=== PATIENT | female | born 1995 | race Caucasian/White ===

== ENCOUNTER 2018-03-08 19:00 | Inpatient (IN) | payer BC, MEDICAID, SELFPAY ==
[2018-03-08] MEDS: Lactated Ringers 1,000 ML 50 ML IV (19:30)
[2018-03-08 19:50] VITALS: BMI 44.1
[2018-03-08] MEDS: 0.9% Normal Saline 250 ML IV.SOLN. 100 ML IV (20:00)
--- NOTE | 2018-03-08 20:08 | PCM.HP.OB ---
- Problem List (1) Smoking (tobacco) complicating , third trimester Status: Chronic (2) Pyelectasis of fetus on ultrasound Status: Acute History Date of Admission: 03/08/18 Final VIC: 03/01/18 Final VIC Source: US <20 weeks Gestational age: 41 Weeks and 0 Days History of this : This is a 22 year-old, G [1], P [0], at 41 weeks gestational age presenting to triage for scheduled postdates induction. Patient course has overall been uncomplicated. Patient initiated care at 6 weeks gestation x 12 visits. Allergies chlorpheniramine [From Dimetapp Long-Acting (cpm-DM)] Allergy (Verified 03/08/18 19:50) Unknown dextromethorphan [From Dimetapp Long-Acting (cpm-DM)] Allergy (Verified 03/08/18 19:50) Unknown Vitamin Smoking Status: Light Smoker (<10/day) Alcohol: None Number of Fetus(es): 1 Heart Tracing: Baseline 140, moderate variability, + accels, no decels TOCO Analysis: Uterine irritability noted History - Labs Labs: O+, Rubella Immune, HIV Negative, HBsAg Negative, Syphilis Negative, GC/CT negative x 2, 1GCT = 133, urine CCMS = Negative, CBC WNL x 2, GBS positive - Delivery Expected Delivery Method: Spontaneous Vaginal Describe any other labor & delivery plans:: Patient reports interest in an epidural when in active labor - Visits Number of Visits: 12 Review of Systems Constitutional: Denies: Chills, Fever, Weight Change HEENT: Denies: Head Aches, Sinus Congestion, Sinus Drainage Cardiovascular: Denies: Chest Pain, Palpitations Respiratory: Denies: Cough, Shortness of breath at rest, Sputum production Gastrointestinal: Denies: Abdominal Pain, Nausea, Vomiting Genitourinary: Denies: Dysuria Gynecological: Denies: Vaginal bleeding, Vaginal discharge Musculoskeletal: Denies: Joint Pain, Joint Tenderness Skin: Denies: Rash, Wounds Neurological: Denies: Numbness, Tingling, Focal weakness Psychiatric: Denies: Anxiety, Depression, Homicidal Ideations, Suicidal Ideations Hematologic/ Lymphatic: Denies: Easy Bruising, Easy Bleeding Physical Exam Vitals: See nursing note for Vital signs - Patient is normotensive and afebrile at this time General: Alert, Oriented x3, No apparent distress Cardiovascular: Regular rate, Regular Rhythm Lungs: Clear to auscultation, Normal air movement Abdomen: Non Tender, Non-Distended, Gravid, Appropriate for Gestational Age Extremities:: No edema, No tenderness/swelling Estimated gestational size: Appropriate for gestational size - EFW = 8.5# Presentation: Cephalic Cervix Dilation (cm): 1.5 Station: -3 Effacement (%): 50 Assessment/Plan All Active Problems Pyelectasis of fetus on ultrasound (Acute)
[2018-03-08 20:20] LABS: Hematocrit 35.4 % (37-47); Hemoglobin 11.9 g/dl (12.0-15.0); Mean Corp Hgb Conc 33.6 g/gl (32-36); Mean Corpuscular Hgb 31.6 pg (27.0-32.0); Mean Corpuscular Volume 93.9 fL (81-99); Mean Platelet Vol. 10.2 fl (6.2-12.0); Platelet Count 352 K/mm3 (150-450); RBC Distribution Width CV 13.3 % (11.6-14.6); RBC Distribution Width SD 43.3 fl (35.1-43.9); Red Blood Count 3.77 M/mm3 (4.2-5.4); White Blood Count 13.3 K/mm3 (4.4-11.0)
--- NOTE | 2018-03-08 20:23 | HP.PCM_ITS ---
- Problem List (1) Smoking (tobacco) complicating , third trimester Status: Chronic (2) Pyelectasis of fetus on ultrasound Status: Acute History Date of Admission: 03/08/18 Final VIC: 03/01/18 Final VIC Source: US <20 weeks Gestational age: 41 Weeks and 0 Days History of this : This is a 22 year-old, G [1], P [0], at 41 weeks gestational age presenting to triage for scheduled postdates induction. Patient course has overall been uncomplicated. Patient initiated care at 6 weeks gestation x 12 visits. Allergies chlorpheniramine [From Dimetapp Long-Acting (cpm-DM)] Allergy (Verified 19:50) Unknown dextromethorphan [From Dimetapp Long-Acting (cpm-DM)] Allergy (Verified 19:50) Unknown Vitamin Smoking Status: Light Smoker (<10/day) Alcohol: None Number of Fetus(es): 1 Heart Tracing: Baseline 140, moderate variability, + accels, no decels TOCO Analysis: Uterine irritability noted History - Labs Labs: O+, Rubella Immune, HIV Negative, HBsAg Negative, Syphilis Negative, GC/CT negative x 2, 1GCT = 133, urine CCMS = Negative, CBC WNL x 2, GBS positive - Delivery Expected Infant Delivery Method: Spontaneous Vaginal Describe any other labor & delivery plans:: Patient reports interest in an epidural when in active labor - Visits Number of Visits: 12 Review of Systems Constitutional: Denies: Chills, Fever, Weight Change HEENT: Denies: Head Aches, Sinus Congestion, Sinus Drainage Cardiovascular: Denies: Chest Pain, Palpitations Respiratory: Denies: Cough, Shortness of breath at rest, Sputum production Gastrointestinal: Denies: Abdominal Pain, Nausea, Vomiting Genitourinary: Denies: Dysuria Gynecological: Denies: Vaginal bleeding, Vaginal discharge Musculoskeletal: Denies: Joint Pain, Joint Tenderness Skin: Denies: Rash, Wounds Neurological: Denies: Numbness, Tingling, Focal weakness Psychiatric: Denies: Anxiety, Depression, Homicidal Ideations, Suicidal Ideations Hematologic/ Lymphatic: Denies: Easy Bruising, Easy Bleeding Physical Exam Vitals: See nursing note for Vital signs - Patient is normotensive and afebrile at this time General: Alert, Oriented x3, No apparent distress Cardiovascular: Regular rate, Regular Rhythm Lungs: Clear to auscultation, Normal air movement Abdomen: Non Tender, Non-Distended, Gravid, Appropriate for Gestational Age Extremities:: No edema, No tenderness/swelling Estimated gestational size: Appropriate for gestational size - EFW = 8.5# Presentation: Cephalic Cervix Dilation (cm): 1.5 Station: -3 Effacement (%): 50 Assessment/Plan All Active Problems Pyelectasis of fetus on ultrasound (Acute)
[2018-03-08] MEDS: Oxytocin 30 units/NS 500 ml 30 UNITS/500 ML IV.SOLN IV (20:26)
[2018-03-08 20:37] LABS: Scan Indicated on CBC? Y/N NO
--- NOTE | 2018-03-09 06:21 | PCM.PN.OB ---
Patient Problems: Active and Suspected Problems Pyelectasis of fetus on ultrasound (Acute) Subjective: Patient able to rest throughout the night while pitocin infusing. Patient reported rosales bulb fell out a few hours after placement and that she has since had regular strong ctx q 2-4 minutes. Decision mutually made with patient for repeat SVE check at this time. Objective: FHT baseline 130. moderate variability, + accels, no decels Ctx q 2-4 minutes, mild to moderately strong to palpation, Pitocin at 8 milliunits SVE = 5/60/-2, IBOW noted. Cervix now posterior. Suspect direct OP by palpation of sutures. - Physical Exam General: Alert, Oriented x3, Cooperative HEENT: Atraumatic, Normocephalic Neck: Supple Lungs: Clear to auscultation, Normal air movement Cardiovascular: Regular rate, No murmurs Abdomen: Soft, Non Tender, Gravid Extremities: No edema, Capillary Refill Less than 3 Seconds, No Calf Tenderness Skin: No rashes, No breakdown Musculoskeletal: No Tenderness to Palpation of Joints or Extremities Neurological: Deep Tendon Reflexes 2+/4 and Symmetrical Psych/Mental Status: Normal Affect, Appropriate, Alert and oriented to time, place, person, mood and affect Weight: 281 lb 12.012 oz Body Mass Index (BMI) 44.1 Intake and Output for Last 24 Hours 03/07/18 03/08/18 03/09/18 23:59 23:59 23:59 Intake Total 650 / 650 710 / 710 Output Total 300 / 300 900 / 900 Balance 350 / 350 -190 / -190 Laboratory Tests Past 24 Hrs 03/08/18 03/08/18 19:30 19:30 WBC 13.3 H RBC 3.77 L Hgb 11.9 L Hct 35.4 L MCV 93.9 MCH 31.6 MCHC 33.6 RDW 13.3 RDW Differential 43.3 Plt Count 352 MPV 10.2 Blood Type O POSITIVE Antibody Screen NEGATIVE Medical Necessity - Tobacco Use Smoking Status: Light Smoker (<10/day) Assessment/Plan All Active Problems Pyelectasis of fetus on ultrasound (Acute) A: 22 y/o @ 41.1 wks, IOL for Postdates, Pitocin Induction, Category I FHT P: 1) Continue pitocin titration for IOL 2) Encourage position changes, side-lying release to help encourage rotation and descent of baby 3) Anticipate AROM with next SVE if minimal cervical change noted. Demi Barrera APRN-CNM
--- NOTE | 2018-03-09 07:28 | PCM.PN.BLA ---
Progress Note Addendum: Notification by oncoming nurse [place] that elevated blood pressure x 2: 160/90s. Blood pressures were taken about 10 minutes apart. Pre-eclampsia panel ordered at this time. [place] RN instructed to check another blood pressure in 15 minutes, if blood pressure still above 140/90 anticipate initiation of hypertension protocol. Will consult with Dr. Serg MILNER re: plan of care once next blood pressure obtained. Demi NEVAREZ
[2018-03-09 07:46] LABS: Hematocrit 35.5 % (37-47); Hemoglobin 11.8 g/dl (12.0-15.0); Mean Corp Hgb Conc 33.2 g/gl (32-36); Mean Corpuscular Hgb 30.6 pg (27.0-32.0); Mean Corpuscular Volume 92.2 fL (81-99); Mean Platelet Vol. 9.4 fl (6.2-12.0); Platelet Count 316 K/mm3 (150-450); RBC Distribution Width CV 13.4 % (11.6-14.6); RBC Distribution Width SD 44.1 fl (35.1-43.9); Red Blood Count 3.85 M/mm3 (4.2-5.4); White Blood Count 16.3 K/mm3 (4.4-11.0)
[2018-03-09 07:51] LABS: Scan Indicated on CBC? Y/N NO
[2018-03-09 08:04] LABS: Partial Thromboplast Time 27.5 Seconds (24.1-36.2)
[2018-03-09 08:18] LABS: AST(SGOT) 9 U/L (15-37); Alanine Aminotransfer ALT/SGPT 10 U/L (13-56); Creatinine, Serum 0.61 mg/dL (0.55-1.02); EST Glomerular Filtration Rate 129 mL/min (>60); Est Glom Filt Rate - Afr Amer 156 mL/min (>60); Estimated Creatinine Clearance 140.68 ml/min; Uric Acid 4.2 mg/dL (2.6-6.0)
[2018-03-09] MEDS: fentaNYL-bupivacaine (epidural) 100 ML BAG EPIDURAL ×2 (08:40→13:18)
[2018-03-09] MEDS: Lactated Ringers 1,000 ML 50 ML IV ×3 (10:52→18:40)
--- NOTE | 2018-03-09 12:29 | PCM.PN.BLA ---
Progress Note Pain well controlled w/ epidural. FHTs normal baseline, moderate variability, some early decels, some accels. Regular ctxs. IUPC in. Cervix /-2. Cont. expectant management. EFW < 5000 gm clinically and pelvis adequate to expect vaginal delivery.
[2018-03-09 14:48] LABS: Protein, Urine (Random) 12.4 mg/dL (<11.9); Protein:Creat Ratio 268 mg/g CRE (0-200)
--- NOTE | 2018-03-09 18:04 | PCM.PN.BLA ---
Progress Note Comfortable w/ epidural. 7/90/0 station. Moderate caput and some cervical swelling. FHTs w/ normal baseline and moderate variability w/ accels, no signif. decels. Ctxs adequate. Cont. expectant management.
[2018-03-09] MEDS: Oxytocin 30 units/NS 500 ml 30 UNITS/500 ML IV.SOLN 334 UNITS IV (21:30)
--- NOTE | 2018-03-09 21:56 | PCM.OB.VAG ---
Vaginal Delivery Maternal Presentation: Medically Indicated Induction Method of Induction: Pitocin, Bradford Bulb, Amniotomy Medical Reason for Induction: - - 41 weeks Amniotic Membrane Rupture Type: Artificial Amniotic Fluid Description: Clear Final VIC: 03/01/18 Gestational age: 41 Weeks and 1 Days Date of Procedure: 03/09/18 Pre-Operative Diagnosis: labor Post-Operative Diagnosis: same Surgery/ Procedure Performed: Spontaneous Vaginal Delivery Type of Anesthesia: Epidural Description of Procedure: A vigorous male was delivered BARBY over a second-degree perineal laceration. The remainder the infant was delivered with maternal pushing and gentle traction only in less than 15 seconds. The Pitocin infusion was initiated for active management of the third stage. The cord was clamped and cut after 1 minute. The infant was attended to by the waiting nursing staff. The placenta was delivered spontaneously and intact. The cervix and vagina were intact. The second-degree perineal laceration was repaired with 3-0 Vicryl suture in a running standard fashion. Sponge and needle counts were correct. A vaginal sweep was completed by me. Presentation: BARBY Placental Delivery Description: Spontaneous Placenta Disposition: [facility] Cord Vessel Description: 3 Vessels Cord Entanglement: None Drain: Bradford to straight drain Estimated Blood Loss: 300 Infant A gender: Male (1 minute): 8 (5 minute): 9 Episiotomy Description: None Laceration: 2nd degree - perineal Medications given after delivery: IV Pitocin Complications: None
[2018-03-09] MEDS: Oxytocin 30 units/NS 500 ml 30 UNITS/500 ML IV.SOLN 167 UNITS IV (22:00)
--- NOTE | 2018-03-09 22:17 | PCM.DCVAG ---
Discharge Diet: No Restrictions Discharge Activity: Return to Normal Activity, May not drive while taking narcotic pain medications., May Shower May resume sexual activity in: 4-6 weeks Additional Activity Instructions:: Nothing in the vagina for 4-6 weeks. You may return to work/school in 6 weeks. Call your doctor if your incision/area has: Continuous Slow Oozing, Sudden Increased Bleeding, Increased Pain/ Swelling, Increased Redness, Foul Smelling Discharge Additional Instructions: If you experience any of the following, contact your healthcare provider. Bleeding that soaks a pad every hour for 2 hours Fever 100.4 or higher Unrelieved incision or abdominal pain Swelling, redness, discharge or bleeding from your incision or episiotomy site Your incision begins to separate Problems urinating (including inability to urinate or burning while urinating). Visual changes Severe headache Flu-like symptoms Pain or redness in one of both of your breasts Pain, warmth, tenderness or swelling in your legs, especially the calf area Frequent nausea and vomiting Symptoms of depression or anxiety If you experience any of the following, call 911 or go to the nearest Emergency Room. Chest pain Problems breathing Seizure activity Partial or complete paralysis of a body part, slurred speech, weakness or drooping of the face, or a sudden inability to walk or hold your balance Allergies/Adverse Reactions: Allergies chlorpheniramine [From Dimetapp Long-Acting (cpm-DM)] Allergy (Verified 03/08/18 19:50) Unknown dextromethorphan [From Dimetapp Long-Acting (cpm-DM)] Allergy (Verified 03/08/18 19:50) Unknown Medications to take at Discharge Vits [Prenatabs FA] 1 tablet PO DAILY 03/08/18 Ibuprofen [Motrin] 800 mg PO TID PRN PRN #60 tab 03/09/18 The following prescriptions were given: Ibuprofen [Motrin] 800 mg PO TID PRN PRN #60 tab PRN Reason: Pain Please Follow Up With: Demi Barrera CNM - [phone] When: Call to make an appointment with your provider's office in 6 weeks or as needed. If you had elevated Blood Pressure or 4th degree laceration you will need to be seen in 2 weeks. Primary Care Physician: Care Physician,No Primary [Primary Care Provider] -
--- NOTE | 2018-03-09 22:18 | DCINST_ITS ---
Discharge Diet: No Restrictions Discharge Activity: Return to Normal Activity, May not drive while taking narcotic pain medications., May Shower May resume sexual activity in: 4-6 weeks Additional Activity Instructions:: Nothing in the vagina for 4-6 weeks. You may return to work/school in 6 weeks. Call your doctor if your incision/area has: Continuous Slow Oozing, Sudden Increased Bleeding, Increased Pain/ Swelling, Increased Redness, Foul Smelling Discharge Additional Instructions: If you experience any of the following, contact your healthcare provider. * Bleeding that soaks a pad every hour for 2 hours * Fever 100.4 or higher * Unrelieved incision or abdominal pain * Swelling, redness, discharge or bleeding from your incision or episiotomy site * Your incision begins to separate * Problems urinating (including inability to urinate or burning while urinating) . * Visual changes * Severe headache * Flu-like symptoms * Pain or redness in one of both of your breasts * Pain, warmth, tenderness or swelling in your legs, especially the calf area * Frequent nausea and vomiting * Symptoms of depression or anxiety If you experience any of the following, call 911 or go to the nearest Emergency Room. * Chest pain * Problems breathing * Seizure activity * Partial or complete paralysis of a body part, slurred speech, weakness or drooping of the face, or a sudden inability to walk or hold your balance Allergies/Adverse Reactions: Allergies chlorpheniramine [From Dimetapp Long-Acting (cpm-DM)] Allergy (Verified 19:50) Unknown dextromethorphan [From Dimetapp Long-Acting (cpm-DM)] Allergy (Verified 19:50) Unknown Medications to take at Discharge Vits [Prenatabs FA] 1 tablet PO DAILY 03/08/18 Ibuprofen [Motrin] 800 mg PO TID PRN PRN #60 tab 03/09/18 The following prescriptions were given: Ibuprofen [Motrin] 800 mg PO TID PRN PRN #60 tab PRN Reason: Pain Please Follow Up With: Demi Barrera, NEGR[facility] - [phone] When: Call to make an appointment with your provider's office in 6 weeks or as needed. If you had elevated Blood Pressure or 4th degree laceration you will need to be seen in 2 weeks. Primary Care Physician: Care Physician,Macy Primary [Primary Care Provider] -
[2018-03-10] VITALS (7 sets, daily range): BP systolic 135–157; BP diastolic 74–97; PULSE 81–104; RESP 12–18; TEMP 35.8–36.7; O2SAT 96–98
[2018-03-10] MEDS: Naproxen 250 MG Tablet PO ×3 (00:54→22:06)
[2018-03-10] MEDS: Senna/Docusate Sodium 1 Tablet PO (00:55)
[2018-03-10] MEDS: Dibucaine 30 GM Tube 1 APPLIC TOPICAL (00:55)
--- NOTE | 2018-03-10 08:24 | PCM.PN.OB ---
Patient Problems: Active and Suspected Problems Pyelectasis of fetus on ultrasound (Acute) Subjective: pain well controlled, average lochia - Physical Exam General: Alert, Cooperative, No apparent distress Vital Signs Temp Pulse Resp BP 98.1 F 82 16 139/74 H 03/10/18 04:02 03/10/18 04:02 03/10/18 04:02 03/10/18 04:02 Oxygen Delivery Method Room Air Weight: 127.8 kg Body Mass Index (BMI) 44.1 Intake and Output for Last 24 Hours 03/08/18 03/09/18 03/10/18 23:59 23:59 23:59 Intake Total 650 / 650 6645 / 6645 Output Total 300 / 300 4700 / 4700 800 / 800 Balance 350 / 350 1945 / 1945 -800 / -800 Laboratory Tests Past 24 Hrs 03/09/18 14:15 U Random Total Protein 12.4 H Urine Creatinine 46.30 Protein/Creatinin Ratio 268 H Medical Necessity - Tobacco Use Smoking Status: Light Smoker (<10/day) Assessment/Plan All Active Problems Pyelectasis of fetus on ultrasound (Acute) PPD#1 doing well routine care
--- NOTE | 2018-03-10 14:20 | NURSING ---
1330 pt BP 157/[address] Lam, manual BP done per her request , 138/82 Dr. Lam states we will monitor.
--- NOTE | 2018-03-10 14:26 | NURSING ---
Reviewed all documentation by SN Emmanuel.
[2018-03-10] MEDS: Acetaminophen 500 MG Tablet 1000 MG PO (17:08)
[2018-03-11 01:05] VITALS: BP 139/82; PULSE 77; RESP 16; TEMP 35.8; O2SAT 97
[2018-03-11] MEDS: Acetaminophen 500 MG Tablet 1000 MG PO ×2 (01:11→09:54)
[2018-03-11 03:10] VITALS: BP 139/82; PULSE 77; RESP 18; TEMP 35.8; O2SAT 97
[2018-03-11] MEDS: Naproxen 250 MG Tablet PO (03:27)
[2018-03-11 09:04] VITALS: BP 126/70; PULSE 69; RESP 16; TEMP 36.1; O2SAT 99
--- NOTE | 2018-03-11 09:07 | PCM.PN.OB ---
Patient Problems: Active and Suspected Problems Pyelectasis of fetus on ultrasound (Acute) Subjective: No complaints - Physical Exam General: Alert, Oriented x3 Abdomen: Soft, Non Tender, Non-Distended - ff mid & belo umb Extremities: No Calf Tenderness Vital Signs Temp Pulse Resp BP Pulse Ox 97 F L 69 16 126/70 H 99 03/11/18 09:04 03/11/18 09:04 03/11/18 09:04 03/11/18 09:04 03/11/18 09:04 Oxygen Delivery Method Room Air Weight: 281 lb 12.012 oz Body Mass Index (BMI) 44.1 Intake and Output for Last 24 Hours 03/09/18 03/10/18 03/11/18 23:59 23:59 23:59 Intake Total 6645 / 6645 Output Total 4700 / 4700 800 / 800 Balance 1945 / 1945 -800 / -800 Medical Necessity - Tobacco Use Smoking Status: Light Smoker (<10/day) Assessment/Plan All Active Problems Pyelectasis of fetus on ultrasound (Acute) PPD#2 D/c home
== END 2018-03-11 12:30 | disposition home or self-care (01) | DRG 775 ==
PROVIDERS: Advanced Practice Midwife; Admitting Provider Obstetrics & Gynecology; Visit Provider Obstetrics & Gynecology
DX: O48.0 Post-term pregnancy (principal); O70.1 Second degree perineal laceration during delivery; O99.825 Streptococcus B carrier state complicating the puerperium; O99.613 Diseases of the digestive system complicating pregnancy, third trimester; K21.9 Gastro-esophageal reflux disease without esophagitis; O35 Maternal care for known or suspected fetal abnormality and damage; O16.4 Unspecified maternal hypertension, complicating childbirth; O99.333 Smoking (tobacco) complicating pregnancy, third trimester; Z3A.41 41 weeks gestation of pregnancy; Z37.0 Single live birth
CPT/HCPCS: 59025; 59050; 82565; 82570; 84156; 84450; 84460; 84550; 85027; 85610; 85730; 86850; 86900; 99218; J7050; J7120; G0378; J3490

== ENCOUNTER 2022-11-04 06:50 | Inpatient (IN) | payer MEDICAID, SELFPAY ==
[2022-11-04] VITALS (65 sets, daily range): BP systolic 102–162; BP diastolic 55–110; PULSE 57–93; RESP 16; TEMP 36.2–36.6; O2SAT 88–100; BMI 42.5
[2022-11-04] MEDS: Lactated Ringers 1,000 ML 50 ML IV (07:55)
[2022-11-04 08:08] LABS: Absolute Lymphocyte Count 3.04 X10^3/uL (0.83-4.51); Absolute Neutrophil Count 7.8 X10^3/uL (2.0-7.7); Basophil# 0.04 X10^3/uL; Basophil% 0.3 % (0-1); Eosinophils% 1.6 % (0-5); Hematocrit 35.3 % (37-47); Hemoglobin 11.7 g/dL (12.0-15.0); Lymphocyte # 3.04 X10^3/ul (0.83-4.51); Lymphocyte % 24.6 % (19-41); Mean Corp Hgb Conc 33.1 g/dL (32-36); Mean Corpuscular Hgb 31.3 pg (27.0-32.0); Mean Corpuscular Volume 94.4 fL (81-99); Mean Platelet Vol. 9.5 fl (6.2-12.0); Monocyte# 1.16 X10^3/uL; Monocyte% 9.4 % (0-10); NRBC Flagged by Analyzer 0 % (0-5); Neutrophil # 7.83 X10^3/uL (2.7-7.7); Neutrophil % 63.2 % (47-70); Platelet Count 307 K/mm3 (150-450); RBC Distribution Width CV 12.8 % (11.6-14.6); RBC Distribution Width SD 44.2 fl (35.1-43.9); Red Blood Count 3.74 M/mm3 (4.2-5.4); White Blood Count 12.4 K/mm3 (4.4-11.0)
[2022-11-04] MEDS: 0.9% Normal Saline Single 100 ML IV.SOLN. INTRA-UTER (08:16)
--- NOTE | 2022-11-04 08:18 | PCM.HP.OB ---
HPI - General General Date of Admission: 11/04/22 Date of Service: 11/04/22 Chief Complaint: induction HPI Narrative JIM GREEN, is a 27 F at 39w0 who presents for scheduled induction of labor. She is doing well and offers no complaints today. complicated by obesity with BMI > 40 and tobacco use. H/o 1 prior - baby weight 8lb 13oz. PFSH PFSH Home Medications vits,calcium no.78-iron fumarate-folic acid 29 mg-1 mg tablet (Prenatabs FA) 1 tab PO DAILY 03/08/18 [History Last Taken 11/01/22 11:00] ibuprofen 800 mg tablet 800 mg PO TID PRN PRN Pain #60 tabs 03/09/18 [Rx Last Taken Unknown] aspirin 81 mg chewable tablet 81 mg PO DAILY 11/04/22 [History Last Taken 11/03/22 11:00] Allergy/AdvReac Type Severity Reaction Status Date / Time chlorpheniramine Allergy Unknown Verified 03/08/18 19:50 [From Dimetapp Long-Acting (cpm-DM)] dextromethorphan Allergy Unknown Verified 03/08/18 19:50 [From Dimetapp Long-Acting (cpm-DM)] Social History Smoking Status: Light Smoker (<10/day) History Elective abortions Hx Para 1 Spontaneous abortions Hx # Term Pregnancies Ectopic pregnancies Hx # Pregnancies Multiple births # of living children NST FHR Rate Baby A FHR Category:: Category I Uterine Activity:: No ctx's Vital Signs Vital Signs Vital Signs: 11/04/22 07:30 11/04/22 07:30 11/04/22 07:31 Temperature Temperature Source Pulse Rate 87 90 Blood Pressure 145/75 H BP Systolic 145 BP Diastolic 75 Pulse Ox 11/04/22 07:31 11/04/22 07:30 11/04/22 07:30 Temperature 97.5 F L Temperature Source Temporal Pulse Rate Blood Pressure BP Systolic BP Diastolic Pulse Ox 98 Weight Weight: 279 lb 8.738 oz Body Mass Index (BMI) 42.5 Physical Exam Const alert and no apparent distress General Appearance: comfortable GI soft to palpation and non-tender Narrative: Cvx 0.5/t/h, posterior Labs Labs Labs: Blood Type O POSITIVE Antibody Screen NEGATIVE Hct 35.3 % (37-47) L Hgb 11.7 g/dL (12.0-15.0) L Rhogam given: No Assessment & Plan (1) 39 weeks gestation of : PLAN: Admit for routine intrapartum care for scheduled IOL given BMI > 40. PCN for GBS positive. Epidural for pain control. Bedside TAUS performed confirming vertex presentation. Cvx 0.5/t/h, posterior. Intracervical rosales placed in usual fashion and filled with 30 cc saline, patient incidentally ruptured upon placement of rosales for moderate amount clear fluid. Expected EFW around 8 lbs and pelvis adequate. Pelvis proven to 8lb 13oz. Anticipate vaginal delivery. (2) Encounter for induction of labor: (3) Obesity affecting : (4) Tobacco use: (5) Positive GBS test:
[2022-11-04] MEDS: Oxytocin 15 Units/NS 250ml 15 UNITS/250 ML IV.SOLN 2 UNITS IV (09:05)
[2022-11-04] MEDS: Penicillin G 3,000,000 Units 50 ML 100 UNITS IV (12:41)
[2022-11-04] MEDS: LACTATED RINGERS 500 ML 999 ML IV (14:00)
--- NOTE | 2022-11-04 17:22 | OP.PCM_ITS ---
Problems Associated Problem List Diagnoses (1) Positive GBS test: (2) Tobacco use: (3) Obesity affecting : (4) Encounter for induction of labor: (5) 39 weeks gestation of : Report of Operation Date of Procedure: 11/04/22 Pre-Operative Diagnosis: 39 week gestation, multiparous, obesity affecting , induction of labor planned, GBS positive Post-Operative Diagnosis: As above Surgery/Procedure Performed:: Description of Surgical Findings:: VMI in OA position with loose nuchal cord x 1. 2nd degree perineal laceration. Normal appearing placenta with 3VC Surgeon: Nsesa Lee Type of Anesthesia: Epidural (Epidural attempted x 2, inadequate pain control) Special Medications: None Specimen's removed: Placenta Drains: None Estimated Blood Loss (mL): 150 Fluids Replaced: N/A Description of Procedure: The patient was complete and pushing. Head of infant was delivered in occiput anterior position. A loose nuchal cord x1 was noted, and upon starting to reduce the nuchal cord the anterior shoulder and posterior shoulder of the delivered spontaneously through the nuchal cord. The shoulders and body of the infant were delivered without any force, traction, or delay. A vigorous viable male infant was placed on maternal abdomen. The cord was clamped and cut by the father of the baby after delayed cord clamping. Cord blood was obtained. Pitocin was started. The placenta delivered with gentle fundal massage. The placenta was inspected and noted to be normal-appearing and intact with three- vessel cord. The fundus was firm and bleeding hemostatic. A second-degree perineal laceration was noted. Local was injected. Using 3-0 Vicryl the second-degree perineal laceration was repaired in usual fashion. Vaginal sweep was performed. Sharp and sponge counts were correct. Grafts/Implants Used: None Complications None Admit VTE Documentation VTE Present on Admission: No
[2022-11-04] MEDS: fentaNYL-bupivacaine (epidural) 100 ML BAG EPIDURAL (17:42)
[2022-11-04] MEDS: Oxytocin 15 Units/NS 250ml 15 UNITS/250 ML IV.SOLN 83 UNITS IV (18:07)
[2022-11-04] MEDS: Ibuprofen 600 MG Tablet PO (21:10)
[2022-11-05] MEDS: Ibuprofen 600 MG Tablet PO ×2 (03:22→11:46)
[2022-11-05 03:25] VITALS: BP 116/65; PULSE 75; RESP 18; TEMP 36.6; O2SAT 95
--- NOTE | 2022-11-05 07:40 | PCM.PN.OB ---
Subjective Subjective Pt is doing well. She offers no complaints. Desires discharge home today if possible. She denies chest pain, shortness of breath, lightheadedness, dizziness, leg pain. Lochia is normal. She is ambulating and voiding without difficulty. Tolerating regular diet without nausea or vomiting. Objective Data Objective Data Vital Signs: Vital Signs Temp Pulse Resp BP Pulse Ox O2 Del Method 97.8 F 75 18 116/65 95 Room Air 11/05/22 03:25 11/05/22 03:25 11/05/22 03:25 11/05/22 03:25 11/05/22 03:25 11/05/22 03:25 Oxygen Delivery Method Room Air Weight: 279 lb 8.738 oz Body Mass Index (BMI) 42.5 Intake & Output: Intake and Output for Last 24 Hours 11/03/22 11/04/22 11/05/22 23:59 23:59 23:59 Intake Total 1590.00 / 1590.00 Output Total 850 / 850 Balance 740.00 / 740.00 Lab / Micro Data Result Diagrams: 11/04/22 07:55 Labs: Laboratory Results - last 24 hr 11/04/22 07:55: WBC 12.4 H, RBC 3.74 L, Hgb 11.7 L, Hct 35.3 L, MCV 94.4, MCH 31.3, MCHC 33.1, RDW Std Deviation 44.2 H, RDW Coeff of Robert 12.8, Plt Count 307, MPV 9.5, Immature Gran % (Auto) 0.900, Neut % (Auto) 63.2, Lymph % (Auto) 24.6, [place] % (Auto) 9.4, Eos % (Auto) 1.6, Baso % (Auto) 0.3, Absolute Neuts (auto) 7.8 H, Absolute Lymphs (auto) 3.04, Nucleated RBC % 0 11/04/22 07:55: Blood Type O POSITIVE, Antibody Screen NEGATIVE Physical Exam Const alert and no apparent distress General Appearance: comfortable GI soft to palpation, non-tender and non-distended Extremity Extremity Narrative: Trace edema of LE bilaterally Assessment & Plan (1) Vaginal delivery: PLAN: Pt is day 1 from a spontaneous vaginal delivery. She is doing well and desires discharge. Discharge instructions reviewed. She requests for the Nexplanon to be placed prior to discharge. (2) Perineal laceration:
--- NOTE | 2022-11-05 07:43 | DCINST_ITS ---
Discharge Instructions Diet Discharge Diet: No restrictions Activity Discharge Activity: May Shower May resume sexual activity in: 6 weeks Ice area for (Minutes): 15 Weight Bearing Status: Weight bearing as tolerated Lifting Restrictions: Nothing heavier than baby Dressing / Incision Call your doctor if your incision/area has: Sudden Increased Bleeding, Increased Pain/ Swelling, Increased Redness, Foul Smelling Discharge and Swelling at the incision site Call your doctor if you observe: Fever of 101 or Higher, Coldness, Increased Pain, Numbness or Tingling, Change in Color, Inability to urinate, Inability to have a bowel movement, Using more than 1 pad per hour, Shortness of breath, Dizziness, Fainting spells, Swelling in the ankles, Chest pain, Increased palpitations (irregular heartbeat), Calf discomfort and Uncontrolled pain Cleanse incision/area with: Soap & Water Follow Up Care When: 2 week 6 week Test Results: Test results from this visit will be discussed in further detail at your follow- up appointment, if applicable. Discharge Plan Admission Admit Date/Time: 11/04/22 06:50 Primary Reason for Your Visit: Delivery Attending Provider: Nessa Lee Primary Care Provider: Care Physician,Macy Primary Discharge Orders/Prescriptions Prescriptions: Continued Prenatabs FA 1 TABLET tablet 1 tab PO DAILY ibuprofen 800 MG tablet 800 mg PO TID PRN PRN (Reason: Pain) Qty: 60 1RF Discontinued aspirin [Aspirin Low-Strength] 81 mg Tablet,Chewable 81 mg PO DAILY Referrals / Follow Up: Care Physician,No Primary [Primary Care Provider] - Disposition Disposition (needs filled in before D/C Order can be placed): Home, Self Care
[2022-11-05 07:55] VITALS: BP 114/59; PULSE 61; RESP 16; TEMP 36.5; O2SAT 96
--- NOTE | 2022-11-05 08:15 | NURSING ---
This RN did not discontinue this IV. Previous RN discontinued, [facility] will not allow me to remove the double charting i accidentally did on this IV site. No IV site at this time but post site is intact.
[2022-11-05 11:39] VITALS: BP 123/72; PULSE 69; RESP 16; TEMP 36; O2SAT 97
[2022-11-05 15:30] VITALS: BP 116/63; PULSE 69; RESP 16; TEMP 36.1; O2SAT 97
[2022-11-05] MEDS: Etonogestrel 68 MG IMPLANT SC (18:05)
--- NOTE | 2022-11-05 18:46 | NURSING ---
MOB reported feeling a blood clot that wouldn't pass, no pain or bleeding noted. This RN did a fundal check with massage and no clot was expressed/no bleeding noted. This RN told MOB to continue to watch and feel for clot to pass. Patient reported to WILL Bronson with this RN in room and Hari Bronson stated the clot will pass in time
== END 2022-11-05 18:35 | disposition home or self-care (01) | DRG 560 ==
PROVIDERS: Admitting Provider Obstetrics & Gynecology; Referring Provider Obstetrics & Gynecology; Visit Provider Obstetrics & Gynecology
DX: O70.1 Second degree perineal laceration during delivery (principal); Z37.0 Single live birth; B95.1 Streptococcus, group B, as the cause of diseases classified elsewhere; F17.200 Nicotine dependence, unspecified, uncomplicated; O99.214 Obesity complicating childbirth; O99.334 Smoking (tobacco) complicating childbirth; O99.824 Streptococcus B carrier state complicating childbirth; O69.81X0 Labor and delivery complicated by cord around neck, without compression, not applicable or unspecified; Z3A.39 39 weeks gestation of pregnancy
CPT/HCPCS: 59025; 59050; 76815; 85025; 86850; 86900; 86901; 99221; J7120; G0378